=== PATIENT | female | born 1955 | race Caucasian/White ===

== ENCOUNTER → 2020-04-24 14:12 | Outpatient (BNVA) | payer OTHER, SELFPAY | PROVIDERS: Family Provider Nurse Practitioner; PCP Nurse Practitioner; Visit Provider Nurse Practitioner Family | DX: J32.9 Chronic sinusitis, unspecified (principal); Z20.828 Contact with and (suspected) exposure to other viral communicable diseases | CPT/HCPCS: 87635 ==

== ENCOUNTER 2020-07-21 11:02 | Outpatient (CLI) | payer OTHER, SELFPAY ==
--- NOTE | 2020-07-21 11:30 | MM_ITS ---
WS: [id number] BILATERAL DIGITAL SCREENING MAMMOGRAPHY WITH CAD CLINICAL INFORMATION: screen breast HISTORY: Screening mammogram. No current complaints. COMPARISON: TECHNIQUE: Bilateral CC and MLO views. FINDINGS: The breasts are composed of heterogeneous fibroglandular density tissue, which can limit the detectio n of small underlying mass lesions. No suspicious mass, asymmetry, calcifications, or architectural d istortion. No evidence of malignancy. Lucent centered calcifications. Punctate calcifications. MM/[id number] IMPRESSION: BI-RADS: 2-Benign FOLLOW UP: 1 Year Follow-up Recommend return to annual screening mammography.
== END 2020-07-21 11:03 | disposition home or self-care (01) ==
LOC: RADSHAW 11:06
PROVIDERS: PCP Nurse Practitioner; Visit Provider Nurse Practitioner
DX: Z12.31 Encounter for screening mammogram for malignant neoplasm of breast (principal)
CPT/HCPCS: 77067

== ENCOUNTER → 2021-01-26 17:05 | Outpatient (BNVA) | payer OTHER, SELFPAY | PROVIDERS: PCP Nurse Practitioner; Visit Provider Nurse Practitioner | DX: L98.9 Disorder of the skin and subcutaneous tissue, unspecified (principal) | CPT/HCPCS: 88304 ==

== ENCOUNTER 2021-03-19 12:18 | Outpatient (CLI) | payer OTHER, SELFPAY ==
--- NOTE | 2021-03-19 12:45 | USCV_ITS ---
Cydney Washington Age: 65 Gender: F : 1955 Exam Date: 03/19/2021 12:58 Ordering Phys: Anusha Chavez MD ([email or web address]) Technologist: Nakul Katz Exam Location: [facility] [place] Indication: Palpitations BP: 146 / 65 HR: 60 Rhythm: Sinus Technical Quality: Adequate MEASUREMENTS (Male / Female) Normal Values 2D ECHO LV Diastolic Diameter PLAX 3.7 cm 4.2 - 5.9 / 3.9 - 5.3 cm LV Systolic Diameter PLAX 2.3 cm IVS Diastolic Thickness 1.4 cm 0.6 - 1.0 / 0.6 - 0.9 cm IVS Systolic Thickness 1.6 cm LVPW Diastolic Thickness 1.0 cm 0.6 - 1.0 / 0.6 - 0.9 cm LVPW Systolic Thickness 1.6 cm LVOT Diameter 2.0 cm LV Ejection Fraction 2D Teich 70.6 % LV Ejection Fraction MOD 2C 77.6 % LV Ejection Fraction 2C AL 77.3 % LA Diameter 2.9 cm LA Width 3.5 cm LA Height 4.7 cm RA Width 3.6 cm RA Height 4.2 cm DOPPLER AV Peak Velocity 240.0 cm/s LVOT Peak Velocity 130.0 cm/s AV Area Cont Eq vti 1.7 cm squared AV Area Cont Eq pk 1.7 cm squared MV Area PHT 5.0 cm squared Mitral E to A Ratio 1.2 MV E' Velocity 54.0 cm/s Mitral E to MV E' Ratio 11.6 Mitral E to LV E' Lateral Ratio 11.4 Mitral E to LV E' Septal Ratio 11.7 TR Peak Velocity 194.3 cm/s TR Peak Gradient 15.1 mmHg TV Peak E Velocity 109.0 cm/s Right Atrial Pressure 3.0 mmHg Pulmonary Artery Systolic Pressu 18.1 mmHg PV Peak Velocity 87.0 cm/s FINDINGS Left Ventricle Normal left ventricular size, systolic function and wall thickness, with no regional wall motion abnormalities. Left ventricular ejection fraction is estimated at 70 %. Normal diastolic function. Right Ventricle Normal right ventricular size and systolic function. Right ventricular systolic pressure 18.1 mmHg. Right Atrium Normal right atrial size. Right atrial pressure estimated at 3 mm Hg. Left Atrium Normal left atrial size. Mitral Valve Structurally normal mitral valve. No mitral valve stenosis. Trace mitral valve regurgitation. Aortic Valve Aortic valve not well visualized. Probably trileaflet aortic valve. No aortic valve stenosis. Mild to moderate aortic valve regurgitation. Tricuspid Valve Structurally normal tricuspid valve. No tricuspid valve regurgitation. Pulmonic Valve Structurally normal pulmonic valve. No pulmonary valve stenosis. No pulmonary valve regurgitation. Pericardium No pericardial effusion. Aorta Normal size aortic root and proximal ascending aorta. Normal- sized inferior vena cava. CONCLUSIONS 1. Normal left ventricular size, systolic function and wall thickness, with no regional wall motion abnormalities. Left ventricular ejection fraction is estimated at 70 %. Normal diastolic function. 2. Normal right ventricular size and systolic function. 3. Mild to moderate aortic valve regurgitation. 4. Normal pulmonary artery pressure. 5. No prior similar studies to compare. Anusha Chavez MD (Electronically Signed) Final Date: 19 March 2021 18:09 S
== END 2021-03-19 12:19 | disposition home or self-care (01) ==
PROVIDERS: PCP Nurse Practitioner; Visit Provider Internal Medicine Cardiovascular Disease
DX: R00.2 Palpitations (principal); I35.1 Nonrheumatic aortic (valve) insufficiency
CPT/HCPCS: 93306

== ENCOUNTER → 2021-06-12 09:59 | Outpatient (BNVA) | payer OTHER, SELFPAY | PROVIDERS: PCP Nurse Practitioner; Visit Provider Nurse Practitioner Family | DX: M79.641 Pain in right hand (principal); M79.7 Fibromyalgia | CPT/HCPCS: 73130 ==

== ENCOUNTER → 2021-09-02 11:49 | Outpatient (BNVA) | payer OTHER, SELFPAY | PROVIDERS: PCP Nurse Practitioner; Visit Provider Nurse Practitioner Family | DX: Z11.52 Encounter for screening for COVID-19 (principal) | CPT/HCPCS: 87635 ==

== ENCOUNTER 2021-09-10 11:45 | Outpatient (CLI) | payer OTHER, SELFPAY ==
[2021-09-10 11:43] VITALS: BMI 32.2
[2021-09-10 12:25] VITALS: BP 136/65; PULSE 56; RESP 20; TEMP 36.8; O2SAT 97
[2021-09-10 12:50] VITALS: BP 139/82; PULSE 68; RESP 18; TEMP 36.7; O2SAT 97
[2021-09-10 13:50] VITALS: BP 122/72; PULSE 61; RESP 17; TEMP 36.6; O2SAT 98
== END 2021-09-10 11:46 | disposition home or self-care (01) ==
PROVIDERS: PCP Nurse Practitioner; Visit Provider Nurse Practitioner Family
DX: U07.1 COVID-19 (principal)
CPT/HCPCS: 96365

== ENCOUNTER → 2021-11-18 08:41 | Outpatient (BNVA) | payer OTHER, MEDICARE, SELFPAY | PROVIDERS: PCP Nurse Practitioner; Visit Provider Nurse Practitioner | DX: E03.9 Hypothyroidism, unspecified (principal) | CPT/HCPCS: 80053; 84443 ==

== ENCOUNTER → 2021-12-09 10:21 | Outpatient (BNVA) | payer MEDICARE, OTHER, SELFPAY | PROVIDERS: PCP Nurse Practitioner; Visit Provider Internal Medicine Cardiovascular Disease | DX: R00.2 Palpitations (principal); R07.9 Chest pain, unspecified; I10 Essential (primary) hypertension | CPT/HCPCS: 99214 ==

== ENCOUNTER → 2022-06-07 09:35 | Outpatient (BNVA) | payer MEDICARE, OTHER, SELFPAY | PROVIDERS: PCP Nurse Practitioner; Visit Provider Nurse Practitioner | DX: E03.9 Hypothyroidism, unspecified (principal); I10 Essential (primary) hypertension | CPT/HCPCS: 80053; 84443 ==

== ENCOUNTER → 2022-06-16 10:00 | Outpatient (BNVA) | payer MEDICARE, OTHER, SELFPAY | PROVIDERS: PCP Nurse Practitioner; Visit Provider Nurse Practitioner | DX: Z12.2 Encounter for screening for malignant neoplasm of respiratory organs (principal) | CPT/HCPCS: 71046 ==

== ENCOUNTER 2022-08-09 13:54 | Outpatient (CLI) | payer MEDICARE, OTHER, SELFPAY ==
--- NOTE | 2022-08-09 14:10 | MM_ITS ---
WS: [id number] BILATERAL 3D TOMOSYNTHESIS DIGITAL SCREENING MAMMOGRAPHY WITH CAD CLINICAL INFORMATION: Z12.39 - Encounter for other screening for malignant neop... HISTORY: Screening mammogram. No current complaints. COMPARISON: 2020 TECHNIQUE: Bilateral CC and MLO views. FINDINGS: The breasts are composed of heterogeneous fibroglandular density tissue, which can limit the detectio n of small underlying mass lesions. Slightly spiculated lesion upper outer LEFT breast measuring 8 mm progressed compared to the prior exams. Recommend further evaluation with spot compression views and ultrasound. Punctate and lucent centered calcifications. Vascular calcification. RIGHT breast is unchanged. MM/[place] [id number] IMPRESSION: BI-RADS: 0-Incomplete: Need additional imaging evaluation FOLLOW UP: Need Additional Imaging Recommend LEFT breast diagnostic mammography and ultrasound.
--- NOTE | 2022-08-09 15:00 | XR_ITS ---
WS: [id number] SCREENING DEXA SCAN [employer] CLINICAL INFORMATION: Z78.0 - Asymptomatic menopausal state COMPARISON: None. FINDINGS: The L1-L4 bone mineral density measures 1.111 g/cm2. This corresponds to a T score score of -0.6 and Z score of 0.6. Left femoral neck bone mineral density measures 0.775 g/cm2. This corresponds to a T score of -1.8 an d Z score of -0.9. Right femoral neck bone mineral density measures 0.929 g/cm2. This corresponds to a T score -0.6of an d Z score of 0.3. Mean femoral neck bone mineral density measures 0.852 g/cm2. This corresponds to a T score of -1.2 an d Z score of -0.3. XR/XR DEXA axial skeleton* [id number] IMPRESSION: Normal bone mineralization lumbar spine. Osteopenia femoral necks. Patient's FRAX calculated 10 year probability for major osteoporotic fracture i s 12.5 % and osteoporotic hip fracture is 2.6%.
== END 2022-08-09 13:55 | disposition home or self-care (01) ==
LOC: RAD 13:55
PROVIDERS: PCP Nurse Practitioner; Visit Provider Nurse Practitioner
DX: Z12.31 Encounter for screening mammogram for malignant neoplasm of breast (principal); Z78.0 Asymptomatic menopausal state; M85.88 Other specified disorders of bone density and structure, other site
CPT/HCPCS: 77063; 77067; 77080; 99203

== ENCOUNTER 2022-08-25 13:38 | Outpatient (CLI) | payer MEDICARE, OTHER, SELFPAY ==
--- NOTE | 2022-08-25 14:06 | MM_ITS ---
WS: [id number] LEFT 3D TOMOSYNTHESIS DIGITAL MAMMOGRAPHY WITH CAD CLINICAL INFORMATION: R92.8 - Other abnormal and inconclusive findings on diagn... COMPARISON: August 09, 2022 TECHNIQUE: 3 views of the left breast were obtained. FINDINGS: The left breast is composed of heterogeneous fibroglandular density tissue, which can limit the detec tion of small underlying mass lesions. Punctate and lucent centered calcifications. Slightly spiculat ed lesion upper outer LEFT breast measuring 8 mm persists on the spot compression views. Ultrasound i s described below ULTRASOUND BREAST LEFT TECHNIQUE: Ultrasound left breast focused area of concern. CLINICAL INFORMATION: R92.8 - Other abnormal and inconclusive findings on diagn... FINDINGS: Ultrasound LEFT breast 12 to 3:00 position. Dense underlying parenchymal tissue. No cystic or solid l esions. No suspicious lesions to target for biopsy. Recommend return to annual screening mammography. MM/[id number] IMPRESSION: BI-RADS: 2-Benign FOLLOW UP: 1 Year Follow-up Recommend return to annual screening mammography.
== END 2022-08-25 13:39 | disposition home or self-care (01) ==
LOC: RAD 13:39
PROVIDERS: PCP Nurse Practitioner; Visit Provider Nurse Practitioner
DX: R92.8 Other abnormal and inconclusive findings on diagnostic imaging of breast (principal)
CPT/HCPCS: 76642; 77061; G0279

== ENCOUNTER → 2022-08-31 11:45 | Outpatient (BNVA) | payer MEDICARE, OTHER, SELFPAY | PROVIDERS: PCP Nurse Practitioner; Visit Provider Nurse Practitioner Family | DX: R68.89 Other general symptoms and signs (principal); J06.9 Acute upper respiratory infection, unspecified; R05.9 Cough, unspecified | CPT/HCPCS: 80053 ==

== ENCOUNTER 2022-09-23 07:33 | Day surgery (SDC) | payer MEDICARE, OTHER, SELFPAY ==
[2022-09-21 15:22] VITALS: BMI 33.7
[2022-09-23 07:48] VITALS: BP 156/84; PULSE 72; RESP 20; TEMP 36.5; O2SAT 97
[2022-09-23] MEDS: sodium chloride 0.9% 1,000 ML 30 ML IV (08:02)
--- NOTE | 2022-09-23 08:32 | P.ANESASSM_ITS ---
Pre-Anesthetic Assessment Height/Weight: Height 1.52 m Weight 78.471 kg Temp Pulse Resp BP Pulse Ox O2 Del Method 97.7 F 72 20 H 156/84 72 L 09/23/22 07:48 09/23/22 07:48 09/23/22 07:48 09/23/22 07:48 09/23/22 07:48 09/23/22 07:48 Preop Diagnosis: screening, dysphagia Operation Date: 09/23/22 09:00 Proposed Procedures p [id number] EGD [id number] Colonoscopy Z12.11,R13.10(Not Applicable) - Stone Barnett DO s Colonoscopy(Not Applicable) - Stone Barnett DO Familial anesthetic complications: none Was Beta Cory taken within 24 hours: N/A Was Clonidine taken within 24 hours: N/A Last intake: Intake Last Liquid Date 09/22/22 Last Liquid Time 23:00 Last Solid Date 09/21/22 Last Solid Time 20:00 Social No alcohol and No tobacco Exam alert and oriented x 3 Airway Submandibular: within normal limits Cervical ROM: within normal limits Mallampati: Class I Dentition: full History/ROS No significant history except as noted Pulmonary None reported CV/HEM Hypertension None reported Hepatic None reported GI Gastroesophageal Reflux Disease Metabolic Hyperlipidemia and Thyroid Disease [facility] [place]/[facility] Fibromyalgia Neuropsych Anxiety Anesthetic Plan ASA status: 3 Anesthesia: Anesthesia Evaluation and MAC Risk of > 500 ml blood loss (7ml/kg in children): No Medications/Allergies Home Medications Medication Instructions Recorded Confirmed Last Taken Type B-complex with vitamin C (Super B 1 tab PO DAILY 01/19/21 09/23/22 09/21/22 History Complex-Vitamin C tablet) aspirin 81 mg tablet,delayed 81 mg PO DAILY 01/19/21 09/23/22 09/21/22 History release calcium carbonate 600 mg calcium 600 mg PO DAILY 01/19/21 09/23/22 09/21/22 History (1,500 mg) tablet (Calcium) cholecalciferol (vitamin D3) 50 50 mcg PO DAILY 01/19/21 09/23/22 09/21/22 History mcg (2,000 unit) capsule cinnamon bark 500 mg capsule 1,000 mg PO DAILY 01/19/21 09/23/22 09/21/22 History (Cinnamon) fluticasone propionate 50 2 spray intranasal DAILY 01/19/21 09/23/22 Unknown History mcg/actuation nasal spray,suspension (Flonase Allergy Relief) garlic 500 mg capsule 500 mg PO DAILY 01/19/21 09/23/22 09/21/22 History loratadine 10 mg tablet (Claritin) 10 mg PO DAILY 01/19/21 09/23/22 09/21/22 History potassium gluconate 595 mg (99 mg) 595 mg PO DAILY 01/19/21 09/23/22 09/21/22 History tablet zinc 50 mg tablet 50 mg PO DAILY 01/19/21 09/23/22 09/21/22 History levothyroxine 50 mcg tablet 50 mcg PO DAILY #90 tabs 06/14/22 09/23/22 09/21/22 Rx pravastatin 10 mg tablet 10 mg PO DAILY #90 tabs 06/18/22 09/23/22 09/21/22 Rx losartan 50 mg-hydrochlorothiazide 1.5 tab PO DAILY #135 tabs 08/30/22 09/23/22 09/21/22 Rx 12.5 mg tablet Allergies Allergy/AdvReac Type Severity Reaction Status Date / Time Latex, Natural Rubber Allergy rash Verified 09/21/22 15:24 Sulfa (Sulfonamide Allergy Unknown Verified 09/21/22 15:24 Antibiotics) Current Medications Generic Name Dose Route Start Last Admin Trade Name Freq PRN Reason Stop Dose Admin Sodium Chloride 1,000 mls @ 30 mls/hr 09/23/22 07:45 09/23/22 08:02 Sodium Chloride 0.9% IV 09/24/22 07:44 30 mls/hr .Q24H GOSIA Administration PFSH Anesthesia Medical History Acid reflux Adult hypothyroidism Anxiety Aortic regurgitation Constipation Dyslipidemia Essential (primary) hypertension Fibromyalgia Hx of breast lump Surgical History History of esophagogastroduodenoscopy (EGD) 10 + yrs. Was positive for hiatal hernia Hx of colonoscopy with polypectomy 10 + yrs ago S/P hysterectomy (~1988) Family History Grandmother CAD (coronary artery disease) Family history of CABG Father Aneurysm Other Myocardial infarction Stroke Social History Smoking and tobacco status: never smoked Second hand smoke exposure: No Smoking risk assessment/counseling performed?: No Alcohol intake: never Desire information about alcohol rehabilitation?: No Counseling given: No Desire information about substance/drug rehabilitation?: No Counseling given: No Adopted: No Caregiver/support person: No Lives independently: Yes Household members: spouse Marital status: service: No History of recent travel: No Current gender identity: Female Data Anesthesia Cardiac Studies: Echocardiogram 03/19/21 Cardiac Event Monitor 01/19/21
--- NOTE | 2022-09-23 09:09 | P.HP_ITS ---
Providers/Chief Complaint Primary Care Provider: NIELS VillaC Chief Complaint: Z12.11, R13.10 History of Present Illness Cydney Washington is a 66 year old female here for EGD with possible balloon dilation and colonoscopy Medications/Allergies Home Medications Medication Instructions Recorded Confirmed Last Taken Type B-complex with vitamin C (Super B 1 tab PO DAILY 01/19/21 09/23/22 09/21/22 History Complex-Vitamin C tablet) aspirin 81 mg tablet,delayed 81 mg PO DAILY 01/19/21 09/23/22 09/21/22 History release calcium carbonate 600 mg calcium 600 mg PO DAILY 01/19/21 09/23/22 09/21/22 History (1,500 mg) tablet (Calcium) cholecalciferol (vitamin D3) 50 50 mcg PO DAILY 01/19/21 09/23/22 09/21/22 History mcg (2,000 unit) capsule cinnamon bark 500 mg capsule 1,000 mg PO DAILY 01/19/21 09/23/22 09/21/22 History (Cinnamon) fluticasone propionate 50 2 spray intranasal DAILY 01/19/21 09/23/22 Unknown Hi story mcg/actuation nasal spray,suspension (Flonase Allergy Relief) garlic 500 mg capsule 500 mg PO DAILY 01/19/21 09/23/22 09/21/22 History loratadine 10 mg tablet (Claritin) 10 mg PO DAILY 01/19/21 09/23/22 09/21/22 History potassium gluconate 595 mg (99 mg) 595 mg PO DAILY 01/19/21 09/23/22 09/21/22 History tablet zinc 50 mg tablet 50 mg PO DAILY 01/19/21 09/23/22 09/21/22 History levothyroxine 50 mcg tablet 50 mcg PO DAILY #90 tabs 06/14/22 09/23/22 09/21/22 Rx pravastatin 10 mg tablet 10 mg PO DAILY #90 tabs 06/18/22 09/23/22 09/21/22 Rx losartan 50 mg-hydrochlorothiazide 1.5 tab PO DAILY #135 tabs 08/30/22 09/23/22 09/21/22 Rx 12.5 mg tablet Allergies Allergy/AdvReac Type Severity Reaction Status Date / Time Latex, Natural Rubber Allergy rash Verified 09/21/22 15:24 Sulfa (Sulfonamide Allergy Unknown Verified 09/21/22 15:24 Antibiotics) PFSH Acute PFSH: Medical History Acid reflux Adult hypothyroidism Anxiety Aortic regurgitation Constipation Dyslipidemia Essential (primary) hypertension Fibromyalgia Hx of breast lump Surgical History History of esophagogastroduodenoscopy (EGD) 10 + yrs. Was positive for hiatal hernia Hx of colonoscopy with polypectomy 10 + yrs ago S/P hysterectomy (~1988) Family History Grandmother CAD (coronary artery disease) Family history of CABG Father Aneurysm Other Myocardial infarction Stroke Social History Smoking and tobacco status: never smoked Second hand smoke exposure: No Smoking risk assessment/counseling performed?: No Alcohol intake: never Desire information about alcohol rehabilitation?: No Counseling given: No Desire information about substance/drug rehabilitation?: No Counseling given: No Adopted: No Caregiver/support person: No Lives independently: Yes Household members: spouse Marital status: service: No History of recent travel: No Current gender identity: Female Vitals/I&O/Wt Last Vital Signs Temp 97.7 F 09/23/22 07:48 Pulse 72 09/23/22 07:48 Resp 20 H 09/23/22 07:48 BP 156/84 09/23/22 07:48 Pulse Ox 72 L 09/23/22 07:48 O2 Del Method 09/23/22 07:48 Weight last 48 hrs Weight 173 lb A&P Assessment and plan (1) Dysphagia: (2) Colon cancer screening: Plan EGD with possible balloon dilation Colonoscopy The risks and benefits of the procedure, including bleeding, infection, intestinal perforation requiring surgery, missed lesion were explained to the patient. The patient is understanding of the risks and wishes to proceed. Attestations Medical Necessity Statement*: Home Coding Level of Care Code Acute Electrical Wiring Lineman for Chg Fwd Diagnoses Dysphagia R13.10 Colon cancer screening Z12.11
[2022-09-23 09:35] VITALS: BP 184/92; PULSE 77; RESP 18; TEMP 36.1; O2SAT 97
--- NOTE | 2022-09-23 09:36 | ANE.PACU2 ---
Inpatient post-anesthesia follow up: Airway intact: Yes Vital signs: Temperature 97.0 F Pulse Rate 77 Respiratory Rate 18 Blood Pressure 184/92 Pulse Oximetry 97 Oxygen Delivery Me thod Room Air Oxygen Flow Rate Fraction of Inspir ed Oxygen Hydration adequate: Yes Nausea and vomiting: No Pain level: 1 Mental status: Baseline
[2022-09-23 10:44] VITALS: BP 149/83; PULSE 67; RESP 18; O2SAT 100
== END 2022-09-23 10:47 | disposition home or self-care (01) ==
PROVIDERS: PCP Nurse Practitioner; Visit Provider Surgery
PROC: 0DJ08ZZ Inspection of Upper Intestinal Tract, Via Natural or Artificial Opening Endoscopic (ICD-10-PCS; CPT 43235; principal; 2022-09-23 09:00)
PROC: 0DJD8ZZ Inspection of Lower Intestinal Tract, Via Natural or Artificial Opening Endoscopic (ICD-10-PCS; CPT 45378; 2022-09-23 09:00)
DX: Z12.11 Encounter for screening for malignant neoplasm of colon (principal); R13.10 Dysphagia, unspecified; K21.9 Gastro-esophageal reflux disease without esophagitis; E03.9 Hypothyroidism, unspecified; F41.9 Anxiety disorder, unspecified; E78.5 Hyperlipidemia, unspecified; I10 Essential (primary) hypertension; M79.7 Fibromyalgia; K57.30 Diverticulosis of large intestine without perforation or abscess without bleeding; K64.8 Other hemorrhoids; K29.50 Unspecified chronic gastritis without bleeding; B96.81 Helicobacter pylori [H. pylori] as the cause of diseases classified elsewhere
CPT/HCPCS: 88305; G0121; J2704; J3490; J7030

== ENCOUNTER → 2022-10-06 11:35 | Outpatient (BNVA) | payer MEDICARE, OTHER, SELFPAY | PROVIDERS: PCP Nurse Practitioner; Visit Provider Surgery | DX: Z09 Encounter for follow-up examination after completed treatment for conditions other than malignant neoplasm (principal); K29.70 Gastritis, unspecified, without bleeding; B96.81 Helicobacter pylori [H. pylori] as the cause of diseases classified elsewhere; K64.8 Other hemorrhoids | CPT/HCPCS: 99212 ==

== ENCOUNTER → 2023-01-03 10:00 | Outpatient (BNVA) | payer MEDICARE, OTHER, SELFPAY | PROVIDERS: PCP Nurse Practitioner; Visit Provider Nurse Practitioner Family | DX: M79.7 Fibromyalgia (principal); I10 Essential (primary) hypertension; F41.9 Anxiety disorder, unspecified; E78.5 Hyperlipidemia, unspecified; E03.9 Hypothyroidism, unspecified; R07.9 Chest pain, unspecified; K21.9 Gastro-esophageal reflux disease without esophagitis; B37.81 Candidal esophagitis; B37.0 Candidal stomatitis; J30.2 Other seasonal allergic rhinitis | CPT/HCPCS: 80053; 80061; 82306; 84443 ==

== ENCOUNTER → 2023-01-05 11:22 | Outpatient (BNVA) | payer MEDICARE, OTHER, SELFPAY | PROVIDERS: PCP Nurse Practitioner; Visit Provider Internal Medicine Cardiovascular Disease | DX: R00.2 Palpitations (principal); R42 Dizziness and giddiness; Z79.82 Long term (current) use of aspirin | CPT/HCPCS: 99213 ==

== ENCOUNTER → 2023-06-22 10:54 | Outpatient (BNVA) | payer MEDICARE, OTHER, SELFPAY | PROVIDERS: PCP Nurse Practitioner; Visit Provider Internal Medicine Cardiovascular Disease | DX: R42 Dizziness and giddiness (principal); R00.2 Palpitations; M79.7 Fibromyalgia; R07.9 Chest pain, unspecified; I10 Essential (primary) hypertension; F41.9 Anxiety disorder, unspecified; E78.5 Hyperlipidemia, unspecified | CPT/HCPCS: 99213 ==

== ENCOUNTER 2023-06-27 13:56 | Outpatient (CLI) | payer MEDICARE, OTHER, SELFPAY ==
--- NOTE | 2023-06-27 14:30 | USCV_ITS ---
Cydney Washington Age: 67 Gender: F : 1955 Exam Date: 06/27/2023 14:38 Ordering Phys: David Bermudez MD ([email or web address]) Technologist: Cathryn Sahni Exam Location: [facility] – [place] Indication: RICHARDS, afib BP: 148 / 70 HR: 50 Rhythm: Sinus Technical Quality: Good MEASUREMENTS (Male / Female) Normal Values 2D ECHO LV Diastolic Diameter PLAX 4.7 cm 4.2 - 5.9 / 3.9 - 5.3 cm LV Systolic Diameter PLAX 2.3 cm IVS Diastolic Thickness 0.9 cm 0.6 - 1.0 / 0.6 - 0.9 cm IVS Systolic Thickness 1.4 cm LVPW Diastolic Thickness 1.0 cm 0.6 - 1.0 / 0.6 - 0.9 cm LVPW Systolic Thickness 1.5 cm LVOT Diameter 2.0 cm LV Ejection Fraction 2D Teich 83.4 % LV Ejection Fraction MOD 2C 76.0 % LV Ejection Fraction 2C AL 77.1 % LA Diameter 3.2 cm LA Width 2.7 cm LA Height 4.7 cm RA Width 3.1 cm RA Height 4.5 cm Aorta at Sinotubular Diameter 2.1 cm IVC Diameter 1.7 cm M-MODE Aortic Annulus Diameter 1.1 cm LA Ao Ratio MM 1.6 MV E Point Septal Separation 0.5 cm DOPPLER AV Peak Velocity 214.0 cm/s LVOT Peak Velocity 106.0 cm/s AV Area Cont Eq vti 1.7 cm squared AV Area Cont Eq pk 1.6 cm squared MV Peak Velocity 114.0 cm/s MV Area PHT 3.3 cm squared Mitral E to A Ratio 1.5 MV E' Velocity 61.0 cm/s Mitral E to MV E' Ratio 12.1 Mitral E to LV E' Lateral Ratio 12.1 Mitral E to LV E' Septal Ratio 12.1 TR Peak Velocity 186.8 cm/s TR Peak Gradient 14.0 mmHg Right Atrial Pressure 5.0 mmHg Pulmonary Artery Systolic Pressu 19.0 mmHg PV Peak Velocity 155.0 cm/s RV Acceleration Time 0.2 s RV Ejection Time 0.4 s RV AcT/ET 0.4 FINDINGS Left Ventricle Normal left ventricular size, systolic function and wall thickness, with no regional wall motion abnormalities. Left ventricular ejection fraction is estimated at 65 %. Grade II diastolic dysfunction, moderately elevated filling pressures. Right Ventricle Normal right ventricular size and systolic function. Right ventricular systolic pressure 19 mmHg. Right Atrium Normal right atrial size. Left Atrium Normal left atrial size. Mitral Valve Structurally normal mitral valve. No mitral valve stenosis. No significant mitral valve regurgitation. Aortic Valve Milldy thickened trileaflet aortic valve. No aortic valve stenosis. Mild aortic valve regurgitation. Tricuspid Valve Structurally normal tricuspid valve. No tricuspid valve stenosis. Trace tricuspid valve regurgitation. Pulmonic Valve Structurally normal pulmonic valve. No pulmonary valve stenosis. No pulmonary valve regurgitation. Pericardium No pericardial effusion. Aorta Normal size aortic root and proximal ascending aorta. IVC Normal IVC dimension with >50% respiratory change of the inferior vena cava. CONCLUSIONS 1. Normal left ventricular size, systolic function and wall thickness, with no regional wall motion abnormalities. Left ventricular ejection fraction is estimated at 65 %. Grade II diastolic dysfunction, moderately elevated filling pressures. 2. Mild aortic valve regurgitation. 3. No significant change when compared to study dated 03/19/2021. Anusha Chavez MD (Electronically Signed) Final Date: 30 June 2023 17:53 S
== END 2023-06-27 13:57 | disposition home or self-care (01) ==
LOC: RAD 13:59
PROVIDERS: PCP Nurse Practitioner; Visit Provider Internal Medicine Cardiovascular Disease
DX: R00.2 Palpitations (principal); R42 Dizziness and giddiness; R06.00 Dyspnea, unspecified; I48.91 Unspecified atrial fibrillation; I35.1 Nonrheumatic aortic (valve) insufficiency; I51.89 Other ill-defined heart diseases
CPT/HCPCS: 93306

== ENCOUNTER → 2023-08-08 11:52 | Outpatient (BNVA) | payer MEDICARE, OTHER, SELFPAY | PROVIDERS: PCP Nurse Practitioner; Visit Provider Nurse Practitioner Family | DX: E03.9 Hypothyroidism, unspecified (principal); I10 Essential (primary) hypertension; E78.5 Hyperlipidemia, unspecified; F41.9 Anxiety disorder, unspecified; R07.9 Chest pain, unspecified | CPT/HCPCS: 80053; 80061; 84443 ==

== ENCOUNTER 2023-09-08 14:41 | Outpatient (CLI) | payer MEDICARE, OTHER, SELFPAY ==
--- NOTE | 2023-09-08 15:00 | MM_ITS ---
WS: [id number] BILATERAL 3D TOMOSYNTHESIS DIGITAL SCREENING MAMMOGRAPHY WITH CAD CLINICAL INFORMATION: SCREENING HISTORY: Screening mammogram. No current complaints. COMPARISON: 2021 TECHNIQUE: Bilateral CC and MLO views. FINDINGS: The breasts are composed of heterogeneous fibroglandular density tissue, which can limit the detectio n of small underlying mass lesions. No suspicious mass, asymmetry, calcifications, or architectural d istortion. No evidence of malignancy. Incidental punctate and lucent centered calcifications. Vascula r calcification. IMPRESSION: MM/[place] [id number] BI-RADS: 2-Benign FOLLOW UP: 1 Year Follow-up Recommend return to annual screening mammography.
== END 2023-09-08 14:42 | disposition home or self-care (01) ==
LOC: MOBLMAM 14:45
PROVIDERS: Family Provider Nurse Practitioner Family; PCP Nurse Practitioner; Visit Provider Nurse Practitioner
DX: Z12.31 Encounter for screening mammogram for malignant neoplasm of breast (principal)
CPT/HCPCS: 77063; 77067

== ENCOUNTER → 2024-01-04 12:22 | Outpatient (BNVA) | payer MEDICARE, OTHER, SELFPAY | PROVIDERS: Family Provider Nurse Practitioner Family; PCP Nurse Practitioner; Visit Provider Internal Medicine Cardiovascular Disease | DX: E78.5 Hyperlipidemia, unspecified (principal); I10 Essential (primary) hypertension; I35.1 Nonrheumatic aortic (valve) insufficiency | CPT/HCPCS: 99213 ==

== ENCOUNTER → 2024-06-04 13:50 | Outpatient (BNVA) | payer MEDICARE, OTHER, SELFPAY | PROVIDERS: Family Provider Nurse Practitioner Family; PCP Nurse Practitioner; Visit Provider Nurse Practitioner Family | DX: R30.0 Dysuria (principal); I10 Essential (primary) hypertension; R00.2 Palpitations; E78.5 Hyperlipidemia, unspecified; F41.9 Anxiety disorder, unspecified; E03.9 Hypothyroidism, unspecified; R07.9 Chest pain, unspecified | CPT/HCPCS: 80053; 80061; 81000; 84443; 85025 ==

== ENCOUNTER 2024-06-05 14:26 | Outpatient (CLI) | payer MEDICARE, OTHER, SELFPAY ==
--- NOTE | 2024-06-05 14:29 | XRR_ITS ---
PROCEDURE INFORMATION: Exam: XR Right Ankle Exam date and time: 06/05/2024 2:43 PM Age: 68 years old Clinical indication: Right; Patient HX: RT lateral ankle pain since fall in October; Additional info: Right ankle pain and swelling TECHNIQUE: Imaging protocol: Radiologic exam of the right ankle. Views: 3 or more views. COMPARISON: No relevant prior studies available. FINDINGS: Bones/joints: Mild osteoarthritis of the tibiotalar joint. Small plantar calcaneal spur. Normal anatomic alignment. No acutely displaced fractures. No joint dislocation. No aggressive osseous lesions. Soft tissues: There is soft tissue swelling. XR/XR ankle RT min 3V* [id number] IMPRESSION: No acute skeletal pathology.
== END 2024-06-05 14:27 | disposition home or self-care (01) ==
LOC: RAD 14:29
PROVIDERS: Family Provider Nurse Practitioner Family; PCP Nurse Practitioner; Visit Provider Nurse Practitioner Family
DX: M25.571 Pain in right ankle and joints of right foot (principal); M77.31 Calcaneal spur, right foot; M25.471 Effusion, right ankle
CPT/HCPCS: 73610

== ENCOUNTER → 2024-07-30 12:17 | Outpatient (BNVA) | payer MEDICARE, OTHER, SELFPAY | PROVIDERS: Family Provider Nurse Practitioner Family; PCP Nurse Practitioner Family; Visit Provider Nurse Practitioner Family | DX: E03.9 Hypothyroidism, unspecified (principal); K21.9 Gastro-esophageal reflux disease without esophagitis; N30.01 Acute cystitis with hematuria; I10 Essential (primary) hypertension; E78.5 Hyperlipidemia, unspecified | CPT/HCPCS: 81000 ==

== ENCOUNTER 2024-10-16 12:00 | Outpatient (CLI) | payer MEDICARE, OTHER, SELFPAY ==
--- NOTE | 2024-10-16 12:00 | MM_ITS ---
WS: [id number] BILATERAL 3D TOMOSYNTHESIS DIGITAL SCREENING MAMMOGRAPHY WITH CAD CLINICAL INFORMATION: SCREENING HISTORY: Screening mammogram. No current complaints. COMPARISON: 2022 TECHNIQUE: Bilateral CC and MLO views. FINDINGS: The breasts are composed of heterogeneous fibroglandular density tissue, which can limit the detection of small underlying mass lesions. No suspicious mass, asymmetry, calcifications, or architectural distortion. No evidence of malignancy. Incidental punctate and lucent centered calcifications. Vascular calcification. MM/MM [facility] tomosynthesis [id number] IMPRESSION: DENSITY: The breasts are heterogeneously dense, which may obscure small masses. BI-RADS: 2 - Benign FOLLOW UP: 1 Year Follow-up Recommend return to annual screening mammography.
== END 2024-10-16 12:01 | disposition home or self-care (01) ==
LOC: MOBLMAM 12:04
PROVIDERS: PCP Nurse Practitioner Family; Visit Provider Nurse Practitioner Family
DX: Z12.31 Encounter for screening mammogram for malignant neoplasm of breast (principal); R92.333 Mammographic heterogeneous density, bilateral breasts; R92.323 Mammographic fibroglandular density, bilateral breasts; R92.1 Mammographic calcification found on diagnostic imaging of breast
CPT/HCPCS: 77063; 77067

== ENCOUNTER → 2025-01-16 12:14 | Outpatient (BNVA) | payer MEDICARE, OTHER, SELFPAY | PROVIDERS: PCP Nurse Practitioner Family; Visit Provider Internal Medicine Cardiovascular Disease | DX: I10 Essential (primary) hypertension (principal); E78.5 Hyperlipidemia, unspecified; R00.2 Palpitations; R42 Dizziness and giddiness; M79.7 Fibromyalgia | CPT/HCPCS: 99214 ==

== ENCOUNTER → 2025-06-26 09:40 | Outpatient (BNVA) | payer MEDICARE, OTHER, SELFPAY | PROVIDERS: PCP Nurse Practitioner Family; Visit Provider Nurse Practitioner Family | DX: I10 Essential (primary) hypertension (principal); R07.9 Chest pain, unspecified; E78.5 Hyperlipidemia, unspecified; R39.9 Unspecified symptoms and signs involving the genitourinary system | CPT/HCPCS: 80053; 80061; 81000; 84443; 85025 ==

== ENCOUNTER → 2025-07-15 09:56 | Outpatient (BNVA) | payer MEDICARE, OTHER, SELFPAY | PROVIDERS: PCP Nurse Practitioner Family; Visit Provider Nurse Practitioner Family | DX: D36.11 Benign neoplasm of peripheral nerves and autonomic nervous system of face, head, and neck (principal); L30.4 Erythema intertrigo; L82.1 Other seborrheic keratosis; L82.0 Inflamed seborrheic keratosis; R20.8 Other disturbances of skin sensation; Z78.9 Other specified health status | CPT/HCPCS: 17110; 99204 ==

== ENCOUNTER → 2025-07-24 13:46 | Outpatient (BNVA) | payer MEDICARE, OTHER, SELFPAY | PROVIDERS: PCP Nurse Practitioner Family; Visit Provider Dermatology | DX: D48.5 Neoplasm of uncertain behavior of skin (principal); R20.8 Other disturbances of skin sensation; R23.8 Other skin changes; L53.8 Other specified erythematous conditions | CPT/HCPCS: 11442; 12052 ==

== ENCOUNTER → 2025-08-13 09:05 | Outpatient (BNVA) | payer MEDICARE, OTHER, SELFPAY | PROVIDERS: PCP Nurse Practitioner Family; Visit Provider Nurse Practitioner Family | DX: S59.911A Unspecified injury of right forearm, initial encounter (principal); X58.XXXA Exposure to other specified factors, initial encounter; M79.631 Pain in right forearm | CPT/HCPCS: 73090 ==